=== PATIENT | female | born 2000 | race Caucasian/White ===

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

== ENCOUNTER 2021-12-13 11:05 | Emergency (ER) | payer OTHER ==
[2021-12-13 12:39] LABS: HEMOGLOBIN 13.3 gm/dl (12.3-15.3); RED BLOOD COUNT 4.34 M/UL (4.00-5.10); WHITE BLOOD COUNT 4.3 K/UL (4.5-11.0)
[2021-12-13 13:16] LABS: BUN/CREATININE RATIO 22 (0-10)
[2021-12-13] MEDS ORDERED: NAPROSYN500 MG PO (13:50)
== END 2021-12-13 14:02 | disposition home or self-care (01) ==
LOC: ER1 11:05
PROVIDERS: Physician Assistant
DX: R07.81 Pleurodynia (principal); F17.290 Nicotine dependence, other tobacco product, uncomplicated; Z88.1 Allergy status to other antibiotic agents
CPT/HCPCS: 71046; 80053; 85025; 85379; 93005; 96374; 99285; J1885